=== PATIENT | male | born 1960 ===

== ENCOUNTER 2017-02-01 10:20 | Day surgery (SDC) | payer OTHER ==
[~2017-02-01 10:20] MED LIST: Atracurium* 10 MG/ML 10 ML VIAL ONE; Buffered Lidocaine 1% SYRIN* 5 ML/SYR SYRINGE ONE; Famotidine IV* 10 MG/ML 2 ML (20 mg) IV ONE; Famotidine IV* 10 MG/ML 2 ML (20 mg) ONE; KETAMINE HCL* 50 MG/ML 10 ML VIAL ONE; Midazolam* 1 MG/ML 5 ML VIAL (5 MG) ONE; Morphine INJ* 2 MG/ML 1 ML SYRINGE IV PRN; NS 0.9% 1000 ML* 1,000 ML IV SCH; PROCHLORPERAZINE INJ 5 MG/ML 2 ML VIAL IV PRN; ceFAZolin 2 GM PREMIX(*) 2 GM/50 ML BAG IVPB ONE; fentaNYL* 50 MCG/ML 2 ML VIAL (100 MCG VIAL) IV PRN; fentaNYL* 50 MCG/ML 2 ML VIAL (100 MCG VIAL) ONE
[2017-02-01] MEDS ORDERED: Bupivacaine 0.5% W/EPI SDV* 30 ML VIAL ONE (10:38)
[2017-02-01] MEDS ORDERED: Lidocaine 2% PF * 5 ML VIAL ONE (11:40)
[2017-02-01] MEDS ORDERED: Glycopyrrolate IV* 0.2 MG/ML 1 ML VIAL ONE (11:40)
[2017-02-01] MEDS ORDERED: Propofol* 10 MG/ML 20 ML BTL IV PUSH ONE (11:40)
[2017-02-01] MEDS ORDERED: Dexamethasone IV* 4 MG/ML 1 ML (4 MG) ONE (11:40)
[2017-02-01] MEDS ORDERED: Neostigmine Methylsulfate* 2 MG/2 ML SYRINGE ONE (11:40)
[2017-02-01] MEDS ORDERED: Ondansetron INJ* 2 MG/ML VIAL ONE (11:40)
[2017-02-01] MEDS ORDERED: Ketorolac INJ* 30 MG/ML 1 ML VIAL ONE (11:40)
[2017-02-01] MEDS ORDERED: HYDROcodone/ACETAMIN 5-325 MG* 1 TAB PO PRN (12:34)
[2017-02-01] MEDS ORDERED: Diltiazem IV* 5 MG/ML 5 ML VIAL (for loading dose/IV Push) (25 MG) ONE (13:15)
[2017-02-01] MEDS ORDERED: HYDROcodone/ACETAMIN 5-325 MG* 1 TAB ONE (13:33)
[2017-02-01 13:35] VITALS: BP 155/84
--- NOTE | 2017-02-02 04:14 | OP ---
OPERATIVE REPORT: DATE OF OPERATION: 02/01/17 - SDS DATE OF : 64 SURGEON: Jignesh Adler MD ANALOG DESIGN ENGINEER: ANJEL De Anda ANESTHESIOLOGIST: Pranav Sands MD ANESTHESIA: General endotracheal. PRE-OP DIAGNOSIS: Bilateral inguinal hernia. POST-OP DIAGNOSIS: Bilateral inguinal hernia. OPERATIVE PROCEDURE: Laparoscopic peritoneal repair of bilateral inguinal hernias with mesh. ESTIMATED BLOOD LOSS: Minimal. IV FLUIDS: Crystalloids. SPECIMEN: None. DRAINS: None. COMPLICATIONS: None. COUNTS: The instrument, needle, and sponge counts were correct. DESCRIPTION OF PROCEDURE: The patient was brought to the operating room and placed on the table supine. Sequential compression devices were placed on both lower extremities. General anesthesia was administered. Izaguirre catheter was placed. The abdomen was prepped and draped in the usual sterile fashion. A time-out was performed. He received appropriate antibiotics. Local anesthetic was infiltrated into the skin and soft tissue and infraumbilical transverse incision was created and subcutaneous tissues were divided. The rectus abdominis fascia was divided to the left of midline transversely, the underlying rectus muscles retracted laterally and a preperitoneal balloon dissector was positioned down to the pubic symphysis and insufflated under direct visualization. This was then removed and replaced with a 12-mm blunt port, which was secured with the balloon. Carbon dioxide was insufflated to a pressure of 10 mmHg in the preperitoneal space and under direct visualization, two 5-mm trocars were placed in the lower midline. The dissection proceeded first on the left side identifying the pubic tubercle, Renato's ligament, inferior epigastric vessels which were preserved and then there was a large indirect inguinal hernia sac, which was dissected free from the cord structures. The sac was twisted upon itself and divided sharply in the proximal and was initially clipped and then ligated with 2-0 Polysorb Surgitie. The dissection proceeded laterally to the anterior superior iliac spine, completely freeing the preperitoneal space. A small rent in the peritoneum laterally was repaired with the endoscopic clip pest control specialist. After completing dissection in the left side, the procedure was repeated on the right side and on this side there was noted to be a small indirect hernia, which was repaired with the Bard 3DMax mesh medium size patch. The patch was placed into the preperitoneal space and to cover the direct and indirect and femoral spaces and secured with the CapSure device tacking to the pubic tubercle and the Renato's ligament as well as the lateral musculature well above the inguinal ligament and the anterior abdominal musculature. The procedure was then repeated on the left side utilizing a large size 3DMax mesh to widely cover the area. The redundant sac was tacked to the area of the pubic tubercle as well in order to secure it. Subsequently, the port was removed and carbon dioxide was released. There appeared to be some carbon dioxide within the peritoneal cavity and therefore, peritoneoscopy was performed through the infraumbilical site incising the posterior sheath and peritoneum and then inserting the 12-mm trocar and insufflating to 10 mmHg and then inspecting the peritoneum in the groins on both left and right side to identify that there was good coverage of the mesh. Subsequently, the carbon dioxide was released, the port was removed and the infraumbilical wound was closed in 2 layers with 0 Polysorb to approximate posterior and anterior rectus fascia. The skin incisions were closed with 4-0 Monocryl in subcuticular fashion. Steri-Strips were applied. The patient tolerated the procedure well, was extubated and transferred to recovery room in a stable condition. [id number]/[facility] #: [id number] NOLBERT[place]
== END 2017-02-01 14:04 | disposition home or self-care (01) ==
LOC: OR 10:20
PROVIDERS: ATTEND Surgery
DX: K40.20 Bilateral inguinal hernia, without obstruction or gangrene, not specified as recurrent (principal); K21.9 Gastro-esophageal reflux disease without esophagitis
CPT/HCPCS: C1776; C1781; J0690; J1100; J1885; J2250; J2405; J2704; J3010